=== PATIENT | female | born 1960 | race Caucasian/White ===

== ENCOUNTER → 2022-04-01 | Day surgery (SDC) | payer BC ==
[~2022-04-01] VITALS: Ht 154.9 cm; Wt 63.0 kg
[~2022-04-01] MED LIST: CARAFATE1 G1 PO; PROTONIX40 MG PO
[2022-04-01 08:52] VITALS: BP 100/60
[2022-04-01 09:30] VITALS: BP 109/67
[2022-04-01 09:45] VITALS: BP 111/72
[2022-04-01 10:00] VITALS: BP 102/73
== END | disposition home or self-care (01) ==
LOC: SDC 03-28 12:30
PROVIDERS: ATTEND Surgery
DX: Z12.11 Encounter for screening for malignant neoplasm of colon (principal); D12.2 Benign neoplasm of ascending colon; D12.4 Benign neoplasm of descending colon; K29.50 Unspecified chronic gastritis without bleeding; K21.9 Gastro-esophageal reflux disease without esophagitis; Z79.899 Other long term (current) drug therapy; Z88.5 Allergy status to narcotic agent